=== PATIENT | male | born 1975 ===

== ENCOUNTER 2019-12-25 10:10 | Emergency (ER) | payer OTHER ==
--- NOTE | 2019-12-25 10:31 | ED ---
Throat Pain/Nasal Congestion - HPI Summary HPI Summary: Patient is a 44 y/o M presenting to the ED for a chief complaint of laceration of the lip. Patient states that he was at [employer] with his children and was eating a salad when he noticed he bit on a sharp plastic object in the salad. After biting the object, patient had a laceration to the lip and bled from the lip. He denies any other complaint, including fever or myalgia. No aggravating or alleviating factors are reported. Patient made the [employer] asset manager aware of the plastic object and the [employer] is investigating the situation. He has an updated tetanus vaccination. Any significant PMHx is denied. FMHx is significant for HTN and DM. - History of Current Complaint Chief Complaint: EDLacSutureRecheck Time Seen by Provider: 12/25/19 10:17 Hx Obtained From: Patient Onset/Duration: Sudden Onset, Still Present Severity: Mild - Allergies/Home Medications Allergies/Adverse Reactions: Allergies Allergy/AdvReac Type Severity Reaction Status Date / Time No Known Allergies Allergy Verified 12/25/19 10:16 Home Medications: Home Medications Multivitamin/Iron/Folic Acid [Centrum Adults Tablet] 1 tab PO DAILY 12/25/19 [ History Confirmed 12/25/19] PMH/Surg Hx/FS Hx/Imm Hx Previously Healthy: Yes Sensory History: Denies: Hx Legally Blind, Hx Deafness Opthamlomology History: Denies: Hx Legally Blind EENT History: Denies: Hx Deafness - Surgical History Surgical History: None Surgery Procedure, Year, and Place: None Infectious Disease History: No Infectious Disease History: Denies: Traveled Outside the [place] in Last 30 Days - Family History Known Family History: Negative: Renal Disease - Social History Occupation: Unemployed Lives: With Family Alcohol Use: None Hx Substance Use: No Substance Use Type: Reports: None Hx Tobacco Use: No Smoking Status (MU): Never Smoked Tobacco Review of Systems Negative: Fever Positive: Other - Positive laceration to the lip Negative: Myalgia All Other Systems Reviewed And Are Negative: Yes Physical Exam - Summary Physical Exam Summary: General: Well appearing, no distress HEENT: PERRL. 0.5 cm puncture to the mucosa of the inner lower lip Cardiovascular: Skin is well perfused Pulmonary: No respiratory distress, no tachypnea Abdomen: Non-distended Skin: Warm, pink, dry MSK: No edema Psych: Normal affect Neuro: A&Ox3 Triage Information Reviewed: Yes Vital Signs On Initial Exam: Initial Vitals Temp Pulse Resp BP Pulse Ox 98.2 F 102 15 154/97 98 12/25/19 10:14 12/25/19 10:14 12/25/19 10:14 12/25/19 10:14 12/25/19 10:14 Vital Signs Reviewed: Yes Procedures - Sedation Patient Received Moderate/Deep Sedation with Procedure: No Diagnostics - Vital Signs Vital Signs Temp Pulse Resp BP Pulse Ox 12/25/19 10:14 98.2 F 102 15 154/97 98 - Laboratory Lab Statement: Any lab studies that have been ordered have been reviewed, and results considered in the medical decision making process. Re-Evaluation - Re-Evaluation First Eval Re-Evaluation Time: :20 Comment: Neg HIV/hep, Hep B immune EENT Course/Dx - Course Course Of Treatment: 44 y/o male presenting for labwork after cutting himself on FB. - d/w patient extremely low risk of exposure but he would like hepatitis /HIV testing. UTD tetanus. - Diagnoses Provider Diagnoses: Lip laceration Discharge ED - Sign-Out/Discharge Documenting (check all that apply): Patient Departure - Discharge - Discharge Plan Condition: Stable Disposition: HOME Patient Education Materials: Laceration (ED) Referrals: Adis Linder MD [Primary Care Provider] - Additional Instructions: You were seen in the emergency department for a laceration for foreign object. Your HIV and hepatitis tests were negative. Please follow up with your primary care doctor in next 2-3 days and return to emergency department for worsening or concerning symptoms. It was a pleasure taking care of you today. - Billing Disposition and Condition Condition: STABLE Disposition: Home - Attestation Statements Document Initiated by Scribe: Yes Documenting Scribe: Violet Brandt Provider For Whom Primitivo is Documenting (Include Credential): uLis Alfaro MD Scribe Attestation: Violet Figueroa, scribed for Luis Alfaro MD on 12/25/19 at 1328. Scribe Documentation Reviewed: Yes Provider Attestation: The documentation as recorded by the Violet bautista accurately reflects the service I personally performed and the decisions made by me, Luis Alfaro MD Status of Scribe Document: Viewed
[2019-12-25 11:53] LABS: Hepatitis B Surface Antigen Nonreactive (Nonreactive)
[2019-12-25 12:10] LABS: Hepatitis B Surface Ab Immune (Immune); Hepatitis C Antibody Negative (Negative)
[2019-12-25 12:29] LABS: HIV 4th Generation Nonreactive (Nonreactive)
[2019-12-25 13:32] VITALS: BP 139/92
== END 2019-12-25 13:31 | disposition home or self-care (01) ==
LOC: ED 10:10
DX: S01.511A Laceration without foreign body of lip, initial encounter (principal); W45.8XXA Other foreign body or object entering through skin, initial encounter; Y92.511 Restaurant or cafe as the place of occurrence of the external cause
CPT/HCPCS: 36415; 86706; 86803; 87340; 87389; 99282